=== PATIENT | female | born 1960 | race American Indian/Alaskan Native ===

== ENCOUNTER 2017-11-05 10:31 | Emergency (ER) | payer MEDICARE ==
[2017-11-05 11:27] LABS: Basophils # (Auto) 0.1 K/mm3 (0.0-0.1); Basophils % (Auto) 0.6 % (0.0-1.8); Eosinophils # (Auto) 0.4 K/mm3 (0.0-0.4); Eosinophils % (Auto) 4.1 % (0.0-4.3); Hematocrit 40.3 % (30.3-42.9); Hemoglobin 13.6 gm/dl (10.1-14.3); Lymphocytes % (Auto) 23.1 % (13.4-35.0); Mean Corpuscular HGB Conc 34 % (30-34); Mean Corpuscular Hemoglobin 28 pg (28-32); Mean Corpuscular Volume 84 fl (79-97); Monocytes # (Auto) 0.6 K/mm3 (0.0-0.8); Monocytes % (Auto) 7.3 % (0.0-7.3); Platelet Count 226 K/mm3 (140-440); Red Blood Count 4.81 M/mm3 (3.65-5.03); Red Cell Distribution Width 13.3 % (13.2-15.2)
[2017-11-05 11:37] LABS: Bilirubin,Urine NEG (Negative); Blood,Urine SM (Negative); Color,Urine Yellow (Yellow); Mucus,Urine FEW /HPF; Nitrite,Urine NEG (Negative); Protein,Urine <15 mg/dL mg/dL (Negative)
[2017-11-05 11:39] LABS: Amphetamine Screen,Urine PRESUMPTIVE NEGATIVE; Benzodiazepines Screen,Urine PRESUMPTIVE NEGATIVE; Methadone Screen,Urine PRESUMPTIVE NEGATIVE; Opiate Screen,Urine PRESUMPTIVE NEGATIVE
[2017-11-05 11:46] LABS: Alanine Aminotransferase 19 units/L (7-56); Albumin 4.4 g/dL (3.9-5); BUN/Creatinine Ratio 20; Blood Urea Nitrogen 14 mg/dL (7-17); Calcium 9.3 mg/dL (8.4-10.2); Hemolysis Index 6
[2017-11-05 11:51] LABS: Cannabinoid Screen,Urine PRESUMPTIVE POSITIVE; Cocaine Screen,Urine PRESUMPTIVE POSITIVE
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
[2017-11-06 01:29] VITALS: BP 124/65
== END 2017-11-06 01:35 ==
LOC: ED 10:31
DX: R45.851 Suicidal ideations (principal); R44.0 Auditory hallucinations; F20.9 Schizophrenia, unspecified
CPT/HCPCS: 36415; 80053; 80307; 81001; 85025; 99285; G0480; 80320

== ENCOUNTER 2020-02-20 18:29 | Emergency (ER) | payer MEDICARE ==
[2020-02-20 18:41] VITALS: BP 163/70
[2020-02-20] MEDS ORDERED: KETOROLAC 30 MG/1 ML INJ IM ONE (20:42)
[2020-02-20] MEDS ORDERED: methylPREDNISolone Sod Succinate 125 MG/2 ML INJ IM ONE (20:42)
--- NOTE | 2020-02-20 20:56 | Emergency Department Report ---
ED General Adult HPI - General Chief complaint: Extremity Problem,Nontraumatic Stated complaint: LFT SIDE HIP PAIN Time Seen by Provider: 02/20/20 20:18 Source: patient Mode of arrival: Ambulatory Limitations: No Limitations - History of Present Illness Initial comments: 59-year-old female with history of sciatica presents to ED with pain in the left hip radiating down the left leg. Patient states this is a chronic condition with recent exacerbation. She denies any recent trauma to the right hip. Patient states pain is usually relieved with a steroid shot and a shot of ibuprofen. Patient states she was recently discharged from [facility] for mental health stabilization. Patient is not currently having any SI or HI. Patient is currently staying at [facility]. She requests a prescription for flexeril. -: week(s) (1) Location: pelvis Radiation: extremity Quality: aching, sharp Consistency: constant Improves with: immobilization Worsens with: movement Associated Symptoms: denies other symptoms - Related Data Previous Rx's Medication Instructions Recorded Last Taken Type Cyclobenzaprine HCl [Flexeril 5 MG 5 mg PO TID PRN #15 tab 02/20/20 Unknown Rx TAB] Allergies Allergy/AdvReac Type Severity Reaction Status Date / Time No Known Allergies Allergy Unverified 11/05/17 10:56 ED Review of Systems ROS: Stated complaint: LFT SIDE HIP PAIN Other details as noted in HPI Comment: All other systems reviewed and negative Musculoskeletal: as per HPI Psychiatric: denies: homicidal thoughts, suicidal thoughts ED Past Medical Hx - Past Medical History Previous Medical History?: Yes Hx Hypertension: Yes Hx Psychiatric Treatment: Yes (Schizo affective) Additional medical history: psych - Surgical History Past Surgical History?: Yes Additional Surgical History: Tonsillectomy, Left Bunionectomy - Social History Smoking Status: Current Every Day Smoker Substance Use Type: Alcohol - Medications Home Medications: Home Medications Medication Instructions Recorded Confirmed Last Taken Type Cyclobenzaprine HCl [Flexeril 5 MG 5 mg PO TID PRN #15 tab 02/20/20 Unknown Rx TAB] ED Physical Exam - General Limitations: No Limitations General appearance: alert, in no apparent distress - Head Head exam: Present: atraumatic, normocephalic - Eye Eye exam: Present: normal appearance, EOMI - ENT ENT exam: Present: mucous membranes moist - Neck Neck exam: Present: normal inspection - Respiratory Respiratory exam: Present: normal lung sounds bilaterally. Absent: respiratory distress - Cardiovascular Cardiovascular Exam: Present: normal rhythm, bradycardia - GI/Abdominal GI/Abdominal exam: Absent: distended - Extremities Exam Extremities exam: Present: tenderness (Left hip) - Neurological Exam Neurological exam: Present: alert, oriented X3. Absent: motor sensory deficit - Psychiatric Psychiatric exam: Present: normal affect, normal mood - Skin Skin exam: Present: warm, dry, intact, normal color ED Course Vital Signs 02/20/20 02/20/20 02/20/20 18:40 21:32 21:40 Temperature 97.9 F Pulse Rate 45 L Respiratory 16 18 18 Rate Blood Pressure 163/70 O2 Sat by Pulse 97 Oximetry ED Medical Decision Making - Medical Decision Making 59 yo F w/ chronic left hip pain and sciatica. No new injury or trauma. IM solumedrol and toradol given. Rx given for flexeril. Outpt f/u advised. - Differential Diagnosis sciatica Critical care attestation.: If time is entered above; I have spent that time in minutes in the direct care of this critically ill patient, excluding procedure time. ED Disposition Clinical Impression: Sciatica Disposition: Z-01 MED SCREENING EXAM-CONT Is pt being admited?: No Condition: Stable Instructions: Sciatica (ED) Prescriptions: Cyclobenzaprine HCl [Flexeril 5 MG TAB] 5 mg PO TID PRN #15 tab PRN Reason: pain Referrals: PRIMARY CARE, [Primary Care Provider] - 3-5 Days Time of Disposition: 20:57
== END 2020-02-20 21:41 | disposition home or self-care (01) ==
LOC: ED 18:29
DX: M54.32 Sciatica, left side (principal); I10 Essential (primary) hypertension; F25.9 Schizoaffective disorder, unspecified; F17.200 Nicotine dependence, unspecified, uncomplicated; Z90.89 Acquired absence of other organs; Z79.899 Other long term (current) drug therapy
CPT/HCPCS: 96372; 99282; J1885; J2930